=== PATIENT | female | born 1990 | race African-American/Black ===

== ENCOUNTER 2017-05-20 20:11 | Emergency (ER) | payer SELFPAY ==
[2017-05-20 20:33] VITALS: BP 135/83
--- NOTE | 2017-05-20 21:18 | EDM.PDOC ---
ED HPI GENERAL MEDICAL PROBLEM - General Chief Complaint: [employer] Problem Stated Complaint: RIGHT BREAST PAIN Time Seen by Provider: 05/20/17 21:00 Source of Information: Reports: Patient History Limitations: Reports: No Limitations - History of Present Illness INITIAL COMMENTS - FREE TEXT/NARRATIVE: 26 year old female presents for evaluation and treatment of bilateral breast pain. Reports the right breast is worse than the left. States the pain has been present for about 2 days. Reports the pain is located in the superior lateral portion of her breast. States she took some advil today around 1600 which helped with the pain. Patient reports she gets similar breast pain every month with her menstrual cycle, however, she is concerned as her last menstrual period was about 3 weeks ago. Denies any skin changes, nipple discharge, fevers , chills, nausea or vomiting. Patient has not had an annual exam in several ear,.s She does not preform monthly self breast exams. Patient also reports a headache. Bilateral Breast Pain Score (Numeric/FACES): 4 - Related Data Allergies Allergy/AdvReac Type Severity Reaction Status Date / Time No Known Allergies Allergy Verified 05/20/17 20:35 Home Meds: Home Meds traMADol [Ultram] 50 mg PO Q6H PRN #10 tablet 05/20/17 [Rx] Past Medical History - Past Surgical History GI Surgical History: Reports: Appendectomy Social & Family History - Family History Family Medical History: Noncontributory - Tobacco Use Smoking Status *Q: Never Smoker - Caffeine Use Caffeine Use: Reports: None - Recreational Drug Use Recreational Drug Use: No - Living Situation & Occupation Living situation: Reports: Single Occupation: Employed ED ROS GENERAL - Review of Systems Review Of Systems: See Below Constitutional: Denies: Fever, Chills GI/Abdominal: Denies: Nausea, Vomiting Skin: Reports: Other (denies any skin changes to the breast or nipple discharge ). Denies: Change in Color Neurological: Reports: Headache ED EXAM, GENERAL - Physical Exam Exam: See Below Exam Limited By: No Limitations General Appearance: Alert, WD/WN, No Apparent Distress, Anxious Eye Exam: Bilateral Eye: Normal Inspection Ears: Normal External Exam Nose: Normal Inspection Throat/Mouth: Normal Inspection, Normal Lips, Normal Voice, No Airway Compromise Neck: Normal Inspection Respiratory/Chest: No Respiratory Distress, Lungs Clear, Normal Breath Sounds, Other (fibrocystic breast changes bilaterally; no fixed lumps or masses appreciated, no nipple drainage, no skin dimples or changes, no axillary lymphadenopathy) Cardiovascular: Normal Peripheral Pulses, Regular Rate, Rhythm, No Murmur Neurological: Alert, Oriented, Normal Cognition Skin Exam: Warm, Dry, Normal Color Course - Vital Signs Last Recorded V/S: Last Vital Signs Temp 36.6 C 05/20/17 20:29 Pulse 95 05/20/17 20:29 Resp 16 05/20/17 20:29 BP 135/83 05/20/17 20:29 Pulse Ox 100 05/20/17 20:29 Departure - Departure Time of Disposition: 21:15 Disposition: Home, Self-Care 01 Condition: Good Clinical Impression: Fibrocystic breast - Discharge Information Prescriptions: traMADol [Ultram] 50 mg PO Q6H PRN #10 tablet PRN Reason: Pain Referrals: PCP,None [Primary Care Provider] - Gabriela Sharpe MD [Physician] - Forms: ED Department Discharge Additional Instructions: [id number] ibuprofen 600 mg every 6 hours as needed for pain. For Pain relieved by ibuprofen, may take tramadol 1 tab every [address] operate machinery within 12 hours of taking tramadol. Tramadol can be habit forming, I recommend you take as few of these as needed to control your pain. Recommend establishing with an [employer] provider. Recommend Dr. Sharpe has [facility]. Call [phone] to schedule with her. Please return to the ER if her symptoms change or worsen.
== END 2017-05-20 21:24 | disposition home or self-care (01) ==
LOC: JD.ED 20:11
DX: N60.12 Diffuse cystic mastopathy of left breast (principal); N60.11 Diffuse cystic mastopathy of right breast
CPT/HCPCS: 99283

== ENCOUNTER 2017-11-08 18:03 | Emergency (ER) | payer SELFPAY ==
[2017-11-08 18:19] VITALS: BP 117/84
--- NOTE | 2017-11-08 18:57 | EDM.PDOC ---
<Donna Patel - Last Filed: 11/08/17 19:30> ED HPI GENERAL MEDICAL PROBLEM - General Chief Complaint: Flank Pain Stated Complaint: LOWER ABDOMINAL PAINS/NAUSEA/HEADACHE Time Seen by Provider: 11/08/17 18:45 Source of Information: Reports: Patient History Limitations: Reports: No Limitations - History of Present Illness INITIAL COMMENTS - FREE TEXT/NARRATIVE: 27 yo female presents with R side and flank pain. She describes the pain as sharp and it came on suddenly, waking her up last night. She believes she may have been feeling a similar pain for the past couple weeks but very minimally. Last night was far worse than it has ever been. She denies any history of frequent UTIs or kidney stones. She denies any urinary symptoms such as frequency, burning or hematuria. LMP was 2 weeks ago and she denies chance of . She denies diarrhea or constipation, last BM yesterday, regular for her with small amount of blood from hemorrhoids. She reports nausea and headache from the pain which developed over today. She denies any associated abdominal pain and reports the pain travels from the R flank area to the L flank. She denies any chronic medical problems and does not take any medications. She denies any recent trauma, falls, injuries or heavy lifting. Onset: Sudden Duration: Day(s): (1. Woke her up from sleep early this morning), Getting Worse Location: Reports: Other (Right flank and side pain) Quality: Reports: Sharp Severity: Moderate Improves with: Reports: None Worsens with: Reports: None Context: Reports: Other (woke her up from sleep) Associated Symptoms: Reports: Fever/Chills, Headaches, Nausea/Vomiting Right Flank Pain Score (Numeric/FACES): 8 - Related Data Allergies Allergy/AdvReac Type Severity Reaction Status Date / Time No Known Allergies Allergy Verified 11/08/17 18:19 Home Meds: Home Meds . [No Known Home Meds] 11/08/17 [History] Past Medical History - Past Surgical History GI Surgical History: Reports: Appendectomy Social & Family History - Family History Family Medical History: Noncontributory - Tobacco Use Smoking Status *Q: Never Smoker - Caffeine Use Caffeine Use: Reports: None - Living Situation & Occupation Living situation: Reports: Single Occupation: Employed ED ROS GENERAL - Review of Systems Review Of Systems: See Below Constitutional: Reports: Fever (subjective), Chills HEENT: Reports: No Symptoms Respiratory: Reports: No Symptoms Cardiovascular: Reports: No Symptoms Endocrine: Reports: No Symptoms GI/Abdominal: Reports: Nausea, Vomiting. Denies: Abdominal Pain, Constipation, Diarrhea : Reports: Flank Pain. Denies: Dysuria, Frequency, Hematuria, Urgency Musculoskeletal: Reports: Back Pain (chronic low back pain) Skin: Reports: No Symptoms Neurological: Reports: No Symptoms Psychiatric: Reports: No Symptoms Hematologic/Lymphatic: Reports: No Symptoms Immunologic: Reports: No Symptoms ED EXAM,LOWER BACK PAIN/INJURY - Physical Exam Exam: See Below Exam Limited By: No Limitations General Appearance: Alert, WD/WN, Mild Distress (appears mildly uncomfortable ) Ears: Hearing Grossly Normal Respiratory/Chest: No Respiratory Distress, Lungs Clear, Normal Breath Sounds, No Accessory Muscle Use, Chest Non-Tender Cardiovascular: Normal Peripheral Pulses, Regular Rate, Rhythm, No Edema, No Gallop, No Murmur, No Rub GI/Abdominal: Normal Bowel Sounds, Soft, Non-Tender, Other (scar RLQ- previous appendectomy ) Back Exam: CVA Tenderness (R), Paraspinal Tenderness (bilaterally-lumbar area). No: Vertebral Tenderness Extremities: Normal Inspection, No Pedal Edema Neurological: Alert, Normal Mood/Affect Psychiatric: Normal Affect, Normal Mood Skin Exam: Warm, Dry, Intact Course - Vital Signs Last Recorded V/S: Last Vital Signs Temp 96.7 F 11/08/17 18:17 Pulse 94 11/08/17 18:17 Resp 16 11/08/17 18:17 BP 117/84 11/08/17 18:17 Pulse Ox 100 11/08/17 18:17 - Orders/Labs/Meds Orders: Active Orders 24 hr Category Date Time Status Abdomen Pelvis wo Cont [CT] Stat Exams 11/08/17 20:14 Taken KUB [Abdomen 1V Flat] [CR] Stat Exams 11/08/17 19:09 Taken UA W/MICROSCOPIC [URIN] Stat Lab 11/08/17 19:17 Ordered Magnesium Citrate [Citrate of Magnesia] Med 11/08/17 21:10 Once 296 ml PO ONETIME ONE Labs: Laboratory Tests 11/08/17 11/08/17 11/08/17 Range/Units 19:17 19:26 19:26 WBC 5.17 (3.98-10.04) K/mm3 RBC 4.30 (3.98-5.22) M/mm3 Hgb 12.9 (11.2-15.7) gm/L Hct 38.8 (34.1-44.9) % MCV 90.2 (79.4-94.8) fl MCH 30.0 (25.6-32.2) pg MCHC 33.2 (32.2-35.5) g/dl RDW Std Deviation 43.0 (36.4-46.3) fL Plt Count 245 (182-369) K/mm3 MPV 9.4 (9.4-12.3) fl Neut % (Auto) 42.0 (34.0-71.1) % Lymph % (Auto) 45.6 (19.3-51.7) % [place] % (Auto) 11.2 (4.7-12.5) % Eos % (Auto) 1.0 (0.7-5.8) Baso % (Auto) 0.2 (0.1-1.2) % Neut # (Auto) 2.17 (1.56-6.13) K/mm3 Lymph # (Auto) 2.36 (1.18-3.74) K/mm3 [place] # (Auto) 0.58 H (0.24-0.36) K/mm3 Eos # (Auto) 0.05 (0.04-0.36) K/mm3 Baso # (Auto) 0.01 (0.01-0.08) K/mm3 Sodium 139 (136-145) mEq/L Potassium 3.9 (3.5-5.1) mEq/L Chloride 104 (98-107) mEq/L Carbon Dioxide 26 (21-32) mEq/L Anion Gap 12.9 (5-15) BUN 5 L (7-18) mg/dL Creatinine 0.7 (0.55-1.02) mg/dL Est Cr Clr Drug Dosing 108.63 mL/min Estimated GFR (MDRD) > 60 (>60) mL/min BUN/Creatinine Ratio 7.1 L (14-18) Glucose 90 (74-106) mg/dL Calcium 8.6 (8.5-10.1) mg/dL Total Bilirubin 0.4 (0.2-1.0) mg/dL AST 19 (15-37) U/L ALT 22 (14-59) U/L Alkaline Phosphatase 52 (46-116) U/L Total Protein 7.7 (6.4-8.2) g/dl Albumin 4.0 (3.4-5.0) g/dl Globulin 3.7 gm/dL Albumin/Globulin Ratio 1.1 (1-2) HCG, Qual (NEGATIVE) Urine Color Yellow (Yellow) Urine Appearance Clear (Clear) Urine pH 7.5 (5.0-8.0) Ur Specific [place] 1.020 (1.005-1.030) Urine Protein Negative (Negative) Urine Glucose (UA) Negative (Negative) Urine Ketones Negative (Negative) Urine Occult Blood Negative (Negative) Urine Nitrite Negative (Negative) Urine Bilirubin Negative (Negative) Urine Urobilinogen 0.2 (0.2-1.0) Ur Leukocyte Esterase Negative (Negative) Urine RBC 0-5 (0-5) /hpf Urine WBC 0-5 (0-5) /hpf Ur Epithelial Cells 0-5 (0-5) /hpf Urine Bacteria Few (FEW) /hpf Urine Mucus Few (FEW) /hpf 11/08/17 Range/Units 19:26 WBC (3.98-10.04) K/mm3 RBC (3.98-5.22) M/mm3 Hgb (11.2-15.7) gm/L Hct (34.1-44.9) % MCV (79.4-94.8) fl MCH (25.6-32.2) pg MCHC (32.2-35.5) g/dl RDW Std Deviation (36.4-46.3) fL Plt Count (182-369) K/mm3 MPV (9.4-12.3) fl Neut % (Auto) (34.0-71.1) % Lymph % (Auto) (19.3-51.7) % [place] % (Auto) (4.7-12.5) % Eos % (Auto) (0.7-5.8) Baso % (Auto) (0.1-1.2) % Neut # (Auto) (1.56-6.13) K/mm3 Lymph # (Auto) (1.18-3.74) K/mm3 [place] # (Auto) (0.24-0.36) K/mm3 Eos # (Auto) (0.04-0.36) K/mm3 Baso # (Auto) (0.01-0.08) K/mm3 Sodium (136-145) mEq/L Potassium (3.5-5.1) mEq/L Chloride (98-107) mEq/L Carbon Dioxide (21-32) mEq/L Anion Gap (5-15) BUN (7-18) mg/dL Creatinine (0.55-1.02) mg/dL Est Cr Clr Drug Dosing mL/min Estimated GFR (MDRD) (>60) mL/min BUN/Creatinine Ratio (14-18) Glucose (74-106) mg/dL Calcium (8.5-10.1) mg/dL Total Bilirubin (0.2-1.0) mg/dL AST (15-37) U/L ALT (14-59) U/L Alkaline Phosphatase (46-116) U/L Total Protein (6.4-8.2) g/dl Albumin (3.4-5.0) g/dl Globulin gm/dL Albumin/Globulin Ratio (1-2) HCG, Qual Negative (NEGATIVE) Urine Color (Yellow) Urine Appearance (Clear) Urine pH (5.0-8.0) Ur Specific [place] (1.005-1.030) Urine Protein (Negative) Urine Glucose (UA) (Negative) Urine Ketones (Negative) Urine Occult Blood (Negative) Urine Nitrite (Negative) Urine Bilirubin (Negative) Urine Urobilinogen (0.2-1.0) Ur Leukocyte Esterase (Negative) Urine RBC (0-5) /hpf Urine WBC (0-5) /hpf Ur Epithelial Cells (0-5) /hpf Urine Bacteria (FEW) /hpf Urine Mucus (FEW) /hpf Meds: Medications Discontinued Medications Generic Name Dose Route Start Last Admin Trade Name Freq PRN Reason Stop Dose Admin Hydrocodone Bitart/Acetaminophen 1 tab 11/08/17 19:49 11/08/17 19:53 [place] 325-5 Mg PO 11/08/17 19:50 1 tab ONETIME ONE Administration Ondansetron HCl 4 mg 11/08/17 19:06 11/08/17 19:12 Zofran Odt PO 11/08/17 19:07 4 mg ONETIME ONE Administration Departure - Departure Disposition: Home, Self-Care 01 Clinical Impression: Obstipation - Discharge Information Instructions: Flank Pain, Adult, [id number], Constipation, Adult, Easy-to- Read, Pain Medicine Instructions, [id number], High-Fiber Diet Referrals: PCP,None [Primary Care Provider] - Forms: ED Department Discharge Additional Instructions: Suggest taking miralax 17 g everyday with copious amounts of water. Increase fiber in diet. Exercise regularly. Go home this evening since receiving mag citrate in the E.D. This should facilitate a BM later this evening. Followup with PCP as needed. Return to the E.D. if you develop any new or worsening symptoms. - My Orders Last 24 Hours: My Active Orders 11/08/17 20:14 Abdomen Pelvis wo Cont [CT] Stat 11/08/17 21:10 Magnesium Citrate [Citrate of Magnesia] 296 ml PO ONETIME ONE - Assessment/Plan Last 24 Hours: My Active Orders 11/08/17 20:14 Abdomen Pelvis wo Cont [CT] Stat 11/08/17 21:10 Magnesium Citrate [Citrate of Magnesia] 296 ml PO ONETIME ONE <Jorge Luis Garcia O - Last Filed: 11/08/17 21:14> Course - Re-Assessments/Exams Free Text/Narrative Re-Assessment/Exam: Agree with HPI and Physical findings by Glenis REY. Suspect patient may have a kidney stone with right flank discomfort unable to get comfortable. Labs are pending. Will determine further testing upon HCG. X-ray of the abdomen: nonspecific and air pattern. No acute findings noted. 11/08/17 20:16 CBC and C14 were essentially normal. HCG negative. UA negative. Ordered CT of the abdomen and pelvis wo contrast renal stone protocol. 11/08/17 21:10 CT impression: Findings suggestive of obstipation. Ordered mag citrate PO. Will discharge patient home with instructions as documented. Departure - Departure Time of Disposition: 21:11 Condition: Good
[2017-11-08] MEDS ORDERED: Ondansetron 4 MG Tab.DIS PO ONE (19:06)
[2017-11-08] MEDS ORDERED: Acetaminophen/HYDROcodone 325-5 MG Tab PO ONE (19:49)
[2017-11-08] MEDS ORDERED: Magnesium Citrate Solution 296 ML Bottle PO ONE (21:10)
--- NOTE | 2017-11-09 08:51 | CT ---
CT abdomen and pelvis Technique: Multiple axial sections were obtained from above the dome of the diaphragm inferiorly through the pubic symphysis. Intravenous and oral contrast was not utilized. Study has been performed as a ureteral stone protocol. Comparison: Prior CT abdomen and pelvis exam of 02/26/11. Findings: Visualized lung bases show nothing acute. Kidneys show no abnormal calcifications. No ureteral dilatation or ureteral stone is seen. No bladder calcifications are seen. Liver and spleen have an unremarkable noncontrast appearance. Adrenal glands show no nodule. Pancreas appears within normal limits. Aorta shows no aneurysmal dilatation. No retroperitoneal adenopathy or mesenteric abnormalities are seen. No pelvic mass or adenopathy is seen. Mild increased stool is noted within the colon. No free fluid or inflammatory change is seen. Appendix is not visualized with certainty. Bone window settings were reviewed which appear within normal limits for the patient's age. Impression: 1. No ureteral stone, ureteral dilatation or ureteral calcifications are seen. 2. Mild increased stool throughout the colon. 3. Nothing acute is appreciated on noncontrast CT study of the abdomen and pelvis. Diagnostic code #2 I agree with preliminary report from [facility], finalized at 11/08/17, 10:04 PM Central Time
--- NOTE | 2017-11-10 08:30 | CR ---
Abdomen: Supine view of the abdomen was obtained. Comparison: No prior abdominal imaging. Slight increased stool within the colon. Bowel gas pattern is otherwise unremarkable. No abnormal calcifications or soft tissue abnormality seen. Bony structures are unremarkable. Impression: 1. Slight increased stool within the colon. Diagnostic code #2
== END 2017-11-08 21:20 | disposition home or self-care (01) ==
LOC: JD.ED 18:03
DX: K59.00 Constipation, unspecified (principal)
CPT/HCPCS: 36415; 74018; 74176; 80053; 81001; 84703; 85025; 99284; A9270; 99283